=== PATIENT | male | born 1945 | race Two or more races ===

== ENCOUNTER 2023-04-20 15:03 | Outpatient (CLI) | payer OTHER | END 2023-04-20 15:16 | disposition home or self-care (01) | LOC: LAB 15:03 | PROVIDERS: ATTEND Urology | DX: R97.20 Elevated prostate specific antigen [PSA] (principal) ==

== ENCOUNTER 2023-05-02 07:19 | Outpatient (CLI) | payer OTHER | END 2023-05-02 07:31 | disposition home or self-care (01) | LOC: SONOGRAMA 07:19 | PROVIDERS: ATTEND Urology | DX: R97.20 Elevated prostate specific antigen [PSA] (principal) ==

== ENCOUNTER 2023-05-19 07:15 | Outpatient (CLI) | payer OTHER | END 2023-05-19 07:16 | disposition home or self-care (01) | LOC: NUCLEAR 07:15 | PROVIDERS: ATTEND Urology | DX: I25.110 Atherosclerotic heart disease of native coronary artery with unstable angina pectoris (principal) | CPT/HCPCS: 78452; 93017; A9500; J0153 ==

== ENCOUNTER 2023-05-24 08:07 | Outpatient (CLI) | payer OTHER | END 2023-05-24 08:08 | disposition home or self-care (01) | LOC: NUCLEAR 08:07 | PROVIDERS: ATTEND Urology | DX: I65.29 Occlusion and stenosis of unspecified carotid artery (principal) ==